=== PATIENT | male | born 1995 | race Caucasian/White ===

== ENCOUNTER 2021-12-12 17:21 | Emergency (ER) | payer MEDICAID, OTHER ==
[~2021-12-12] VITALS: Ht 190.5 cm; Wt 114.0 kg
[2021-12-12] MEDS ORDERED: FLUORESCEIN (FLUOR-I-STRIPS) 1 MG STRP ONE (17:28)
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
[2021-12-12] MEDS ORDERED: OFLO5DRO3 OP (17:51)
[2021-12-12 17:59] VITALS: BP 141/96
== END 2021-12-12 18:02 | disposition home or self-care (01) ==
LOC: ER FS 17:23
DX: T15.02XA Foreign body in cornea, left eye, initial encounter (principal); Z88.1 Allergy status to other antibiotic agents; Z28.310 Unvaccinated for COVID-19
CPT/HCPCS: 99281

== ENCOUNTER 2022-03-01 10:55 | Emergency (ER) | payer MEDICAID ==
[~2022-03-01] VITALS: Ht 187.9 cm; Wt 113.4 kg
[~2022-03-01 10:55] MED LIST: OFLO5DRO3 OP
[2022-03-01 11:00] VITALS: BP 145/82
--- NOTE | 2022-03-01 12:13 | ED Cough/URI ---
General Chief Complaint: Cough/Cold/Flu Symptoms Stated Complaint: FEVER, COUGH Nursing Triage Note: Patient reports he has had a cough, fever, nausea/vomiting for 2-3 days. Source: patient Exam Limitations: no limitations History of Present Illness Date Seen by Provider: Mar 01, 2022 Time Seen by Provider: 11:00 Initial Comments Patient is a 27-year-old male who presents with nasal congestion cough, sore throat, fever body aches nausea and vomiting for the past 3 days. His nausea is improved but he is continue to have cough, sore throat. He denies shortness of breath. Wheezing chest pain chest tightness, neck stiffness, rash, abdominal pain. No other symptoms or complaints Timing/Duration: just prior to arrival Severity/Quality: mild Prior Episodes/Possible Cause: other Modifying Factors: Improves With Other Associated Symptoms: other Allergies and Home Medications Allergies Coded Allergies: clarithromycin (Verified Allergy, Unknown, 12/12/21) Patient Home Medication List Home Medication List Reviewed: Yes Ofloxacin (Ofloxacin) 0.3 % Drops, 5 ML OP Q6H Prescribed by: NICOLETTE SHEPHERD on 12/12/21 [id number] Review of Systems Review of Systems Constitutional: see HPI EENTM: see HPI Cardiovascular: see HPI Gastrointestinal: see HPI Genitourinary: see HPI Musculoskeletal: see HPI Skin: see HPI Psychiatric/Neurological: See HPI Hematologic/Lymphatic: See HPI All Other Systems Reviewed Negative Unless Noted: No Past Rosdrnh-Zmzsju-Yonpry Hx Patient Social History Tobacco Use?: No Substance use?: No Alcohol Use?: No Pt feels they are or have been: No Past Medical History Surgery/Hospitalization HX: Appendectomy; [place] teeth removal; testicle herniated; Palpitations Physical Exam Vital Signs - First Documented 03/01/22 11:00 Temp 36.2 Pulse 101 Resp 18 B/P (MAP) 145/82 (103) Pulse Ox 97 O2 Delivery Room Air Capillary Refill : Less Than 3 Seconds Height: '" Weight: lbs. oz. 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 Abdomen soft nontender. R ecommendations supportive care watchful waiting PCP follow-up as needed. Return precautions reviewed. Patient verbalizes understanding agreement with discharge instructions upon departure. Impression Primary Impression: Viral syndrome Additional Impression: Nausea & vomiting Disposition: 01 HOME, SELF-CARE Condition: Stable Departure-Patient Inst. Referrals: NO,LOCAL PHYSICIAN (PCP/Family) Primary Care Physician Patient Instructions: Viral Syndrome (DC), Nausea and Vomiting, Adult ED Add. Discharge Instructions: You were evaluated in the emergency department for nausea vomiting and cough. Your symptoms are consistent with a viral syndrome with GI upset. Please take ibuprofen Mucinex for cough and fever and nausea medication as directed. Drink clear liquids and progress to bland diet as tolerated. Follow-up with your PCP in 3 to 5 days for reevaluation if symptoms persist. Return to the ED if symptoms persist. All discharge instructions reviewed with patient and/or family. Voiced understanding. EMANUEL DOSS DO Mar 01, 2022 12:13
[2022-03-01] MEDS ORDERED: ONDA4TAB11 SL (12:16)
== END 2022-03-01 12:21 | disposition home or self-care (01) ==
LOC: EDUNIT# 10:55 → ER FS 10:56
DX: R05.9 Cough, unspecified (principal); R09.81 Nasal congestion; J02.9 Acute pharyngitis, unspecified; R50.9 Fever, unspecified; R52 Pain, unspecified; B34.9 Viral infection, unspecified; R11.2 Nausea with vomiting, unspecified; Z28.310 Unvaccinated for COVID-19
CPT/HCPCS: 99281